=== PATIENT | female | born 1990 | race Caucasian/White ===

== ENCOUNTER 2016-12-22 08:32 | Emergency (ER) | payer OTHER ==
--- NOTE | 2016-12-22 09:52 | EDPHY ---
H & P Stated Complaint: Lightheaded episodes for several months;passed out this morning,hit head Time Seen by Provider: 12/22/16 09:36 HPI/ROS: CHIEF COMPLAINT: syncope hit head HISTORY OF PRESENT ILLNESS: 26-year-old immunocompetent female arrives via private vehicle states that this morning approximately 5:00 a.m. she woke up to go to the bathroom, she stood up from the toilet and went to get some water, felt lightheaded and felt the room darkening and had a syncopal episode, woke up on the floor. No postictal. According to her roommates, no seizure-like activity, no incontinence, no oral trauma. Impacted the occipital region of her head. No laceration. No abrasion. No hematoma. She has localized tenderness in the occiput. No midline C-spine pain. She notes prior history of similar near syncopal episode around 2015. No history of seizure disorder. No alcohol or drug use. no recent GI symptoms. She does note that she has been feeling URI symptoms for the past several weeks and is currently on a 2 week course of antibiotics prescribed by her former PCP and [place]. She is complaining of myalgias. No antecedent headache. No antecedent or concurrent abdominal pain PRIMARY CARE PROVIDER: In [place] REVIEW OF SYSTEMS: A ten point review of systems was performed and is negative with the exception of the items mentioned in the HPI PAST MEDICAL & SURGICAL HISTORY: No pertinent medical or surgical history SOCIAL HISTORY: nonsmoker. No illicit drug use. FAMILY HISTORY: no family history of premature coronary artery disease, no thromboembolic disorder history. PHYSICAL EXAM (Prior to examination, patient consented to physical exam, hands were washed and my usual and customary physical exam procedures followed) 1) GENERAL: Well-developed, well-nourished, alert and oriented. Appears to be in no acute distress. Answering questions appropriately 2) HEAD: Normocephalic, no laceration or abrasion. Tender to palpation midline occiput with no depression no hematoma. At 3) HEENT: Pupils equal, round, reactive to light bilaterally. Sclera anicteric. Nasopharynx, oropharynx, clear, no lesions. Ears bilaterally with normal tympanic membranes. No hemotympanum. No otorrhea. No rhinorrhea. No raccoon eyes. No Willard sign. 4) NECK: Full range of motion, no meningeal signs. No midline C-spine pain. Full range of motion which does not elicit midline pain or peripheral paresthesia, weakness, numbness. no meningeal sign. 5) LUNGS: Clear auscultation bilaterally, no wheezes, no rhonchi, no retractions. 6) HEART: Regular rate and rhythm, no murmur, no heave, no gallop. 7) ABDOMEN: No guarding, no rebound, no focal tenderness, negative McBurney's, negative Marquez's, negative Rovsing's, negative peritoneal sign, 8) MUSCULOSKELETAL: Moving all extremities, no focal areas of tenderness, no obvious trauma. No peripheral edema or discoloration. 9) BACK: No CVA tenderness, no midline vertebral tenderness, no fluctuance, no step-off, no obvious trauma, no visual or palpable abnormality. 10) SKIN: No rash, no petechiae. 11) Psychiatric: Patient is oriented X 3, there is no agitation. 12) NEURO: Awake, alert, and oriented to person, place and time. Answers questions appropriately. There were no obvious focal neurologic abnormalities. No cerebellar dysfunction. Cranial nerves 2 through to 12 intact. Normal steady gait. Upper and lower extremities bilaterally with strength 5 / 5, reflexes 2+. DIFFERENTIAL DIAGNOSIS: Not necessarily in any particular order, my differential diagnosis includes, but is not limited to, concussion, skull fracture, seizure, cardiac arrhythmia, ectopic , intraparenchymal contusion, subarachnoid, subdural and epidural hematoma. The patient understands that this diagnosis is provisional and can never be 100% accurate. - Personal History LMP (Females 10-55): Extended Cycle BCP/Inj Current Tetanus Diphtheria and Acellular Pertussis (TDAP): Yes - Social History Smoking Status: Never smoked Constitutional: Initial Vital Signs Temperature (C) 36.6 C 12/22/16 08:34 Heart Rate 94 12/22/16 08:34 Respiratory Rate 18 12/22/16 08:34 Blood Pressure 119/72 12/22/16 08:34 O2 Sat (%) 99 12/22/16 08:34 O2 Delivery Mode Room Air Allergies/Adverse Reactions: No Known Allergies Allergy (Unverified 12/22/16 08:38) Home Medications: Medication Instructions Recorded Bc Implant 12/22/16 Doxycycline Hyclate [Vibramycin 100 mg PO 12/22/16 100 MG (*)] Medical Decision Making - Diagnostics Imaging: Chest, PA and Lateral History: Chest pain Comparison: None Findings: There is mild bronchial wall thickening. Lung volumes are mildly prominent. Lungs are clear, without focal infiltrate or consolidation. Heart size and pulmonary vascularity are normal. There is no adenopathy or mass lesion. There is no pleural effusion , pneumomediastinum or pneumothorax. There is a mild thoracic scoliosis.. Impression: Suspect airways disease. Otherwise negative. Dictated By: Momo Haq MD CT Scan of the Head (Without Contrast) Clinical History: 26-year-old female presenting to the ED after fainting this morning hitting the posterior portion of the head with subsequent occipital pain. Rule out acute intracranial abnormality. Technique: Axial unenhanced images were obtained from the vertex through the skull base, reformatted at 5.00 and 1.50 mm increments, and reviewed in bone, brain, and subdural windows. Images were reprocessed in parasagittal and paracoronal planes. Dose reduction techniques were utilized. The DFOV is 25.0 cm. Comparison Study: None. Findings: The ventricles and basilar cisterns are normal in size, and symmetrical in configuration. There is no midline shift, or other evidence of mass effect. There is no abnormal intra or extra-axial blood collection, or acute infarction identified. The mastoids are patent. The frontal sinuses are patent. There is chronic mucosal thickening involving the maxillary sinuses ( right greater than left) with a small air-fluid level seen bilaterally, suggesting potential acute- on-chronic features. Clinical correlation is suggested. There is also a mucous retention cyst and some mucosal thickening in the posterior margins of the right and left aspects of the sphenoid sinus , and mild mucosal thickening of the caudal ethmoids. The ostiomeatal complexes are patent bilaterally. The craniocervical junction, sella turcica, pineal gland, and the orbits are within normal limits. There is no acute calvarial fracture, or osteolytic or blastic lesion. The visualized aspects of the anterior and posterior rings of C1 are intact. Impression: 1. There is no acute intracranial abnormality identified on this unenhanced CT evaluation. 2. Paranasal sinus disease involving the maxillary, ethmoid, and sphenoid sinuses, as above- detailed. If there is further clinical concern regarding the patient's symptoms, MR imaging is suggested, if not otherwise contraindicated. Findings were discussed with Essence Courtney PA-C, at 13:09, on 12/22/2016. Dictated By: Xavier Willams MD Images reviewed by myself ED Course/Re-evaluation: IV hydration given for volume depletion. Re-evaluation at 12:15 p.m.: Discussed her laboratory [place] [id number] the specific etiology of which is not completely clear. spoke with the patient further at this time, she is currently on day 09/2014 day total of doxycycline prescribed by her PCP for bronchitis. She notes 1 month of feeling ill, myalgia , URI symptoms. Will obtain influenza testing, Monospot, chest x-ray. We discussed imaging of the head, recommended imaging of the head which she is agreeable with after discussing the indications risks benefits. Discussed case with Dr. Momo Shoemaker. 1:38 p.m.: Re-evaluation. Discussed her diagnostic results. She is answering questions appropriately. Doubt meningitis. Doubt encephalitis. I think the patient can be discharged With usual and customary discharge precautions and instructions. Patient feels comfortable with this plan. - Data Points Laboratory Results: Laboratory Results 12/22/16 10:13 12/22/16 10:13 12/22/16 12/22/16 12/22/16 12:34 12:29 10:13 WBC RBC Hgb Hct MCV MCH MCHC RDW Plt Count MPV Neut % (Auto) Lymph % (Auto) [place] % (Auto) Eos % (Auto) Baso % (Auto) Nucleat RBC Rel Count Absolute Neuts (auto) Absolute Lymphs (auto) Absolute Monos (auto) Absolute Eos (auto) Absolute Basos (auto) Absolute Nucleated RBC Immature Gran % Immature Gran # Sodium Potassium Chloride Carbon Dioxide Anion Gap BUN Creatinine Estimated GFR Glucose Calcium Creatine Kinase Beta HCG, Qual NEGATIVE Urine Color PALE YELLOW Urine Appearance CLEAR Urine pH 7.0 (5.0-7.5) Ur Specific [place] 1.005 (1.002-1.030) Urine Protein NEGATIVE (NEGATIVE) Urine Ketones NEGATIVE (NEGATIVE) Urine Blood 1+ H (NEGATIVE) Urine Nitrate NEGATIVE (NEGATIVE) Urine Bilirubin NEGATIVE (NEGATIVE) Urine Urobilinogen NEGATIVE EU EU (0.2-1.0) Ur Leukocyte Esterase NEGATIVE (NEGATIVE) Urine RBC 1-3 /hpf /hpf (0-3) Urine WBC NONE SEEN /hpf /hpf (0-3) Ur Epithelial Cells TRACE /lpf /lpf (NONE-1+) Urine Bacteria TRACE /hpf H /hpf (NONE SEEN) Urine Mucus TRACE /lpf /lpf (NONE-1+) Urine Glucose NEGATIVE (NEGATIVE) Monoscreen Influenza Typ A,B (DFA) NEGATIVE FOR FLU (NEGATIVE) 12/22/16 12/22/16 12/22/16 10:13 10:13 10:00 WBC 21.72 10^3/uL H 10^3/uL (3.80-9.50) RBC 4.90 10^6/uL 10^6/uL (4.18-5.33) Hgb 14.3 g/dL g/dL (12.6-16.3) Hct 42.5 % % (38.0-47.0) MCV 86.7 fL fL (81.5-99.8) MCH 29.2 pg pg (27.9-34.1) MCHC 33.6 g/dL g/dL (32.4-36.7) RDW 13.2 % % (11.5-15.2) Plt Count 202 10^3/uL 10^3/uL (150-400) MPV 12.7 fL H fL (8.7-11.7) Neut % (Auto) 94.3 % H % (39.3-74.2) Lymph % (Auto) 2.1 % L % (15.0-45.0) [place] % (Auto) 2.6 % L % (4.5-13.0) Eos % (Auto) 0.0 % L % (0.6-7.6) Baso % (Auto) 0.3 % % (0.3-1.7) Nucleat RBC Rel Count 0.0 % % (0.0-0.2) Absolute Neuts (auto) 20.47 10^3/uL H 10^3/uL (1.70-6.50) Absolute Lymphs (auto) 0.45 10^3/uL L 10^3/uL (1.00-3.00) Absolute Monos (auto) 0.57 10^3/uL 10^3/uL (0.30-0.80) Absolute Eos (auto) 0.01 10^3/uL L 10^3/uL (0.03-0.40) Absolute Basos (auto) 0.07 10^3/uL 10^3/uL (0.02-0.10) Absolute Nucleated RBC 0.00 10^3/uL 10^3/uL (0-0.01) Immature Gran % 0.7 % % (0.0-1.1) Immature Gran # 0.15 10^3/uL H 10^3/uL (0.00-0.10) Sodium 140 mEq/L mEq/L (134-144) Potassium 4.1 mEq/L mEq/L (3.5-5.2) Chloride 107 mEq/L mEq/L (97-110) Carbon Dioxide 24 mEq/l mEq/l (22-31) Anion Gap 9 mEq/L mEq/L (8-16) BUN 9 mg/dL mg/dL (7-23) Creatinine 0.7 mg/dL mg/dL (0.6-1.0) Estimated GFR > 60 Glucose 92 mg/dL mg/dL (70-100) Calcium 10.0 mg/dL mg/dL (8.5-10.4) Creatine Kinase 34 IU/L IU/L (0-156) Beta HCG, Qual Urine Color Urine Appearance Urine pH Ur Specific [place] Urine Protein Urine Ketones Urine Blood Urine Nitrate Urine Bilirubin Urine Urobilinogen Ur Leukocyte Esterase Urine RBC Urine WBC Ur Epithelial Cells Urine Bacteria Urine Mucus Urine Glucose Monoscreen NEGATIVE (NEGATIVE) Influenza Typ A,B (DFA) Departure - Departure Disposition: Home, Routine, Self-Care Clinical Impression: Syncope Qualifiers: Syncope type: vasovagal syncope Qualified Code(s): R55 - Syncope and collapse Head injury Qualifiers: Encounter type: initial encounter Qualified Code(s): S09.90XA - Unspecified injury of head, initial encounter Condition: Good Instructions: Syncope (ED), Head Injury (ED) Additional Instructions: Return to the ER if you developed chest pain, fever, nausea, vomiting, neck stiffness, or any other symptoms that concern you. Referrals: Ping Scanlon MD [Medical Doctor] - 1-2 days without fail Christa Lara MD [Medical Doctor] - 3-4 days, if not improved
--- NOTE | 2016-12-22 10:02 | CPEKG ---
Heart Rate: 75 RR Interval: 800 P-R Interval: 144 QRSD Interval: 66 QT Interval: 356 QTC Interval: 398 P [place]: 71 QRS [place]: 79 T Wave [place]: -22 EKG Severity - ABNORMAL ECG - EKG Impression: SINUS RHYTHM EKG Impression: NONSPECIFIC T ABNORMALITIES, ANTERIOR LEADS Electronically Signed By: Momo Shoemaker 22-Dec-2016 14:46:20
[2016-12-22 10:22] LABS: % IMMATURE GRANULYOCYTES 0.7 % (0.0-1.1); ABSOLUTE IMMATURE GRANULOCYTES 0.15 10^3/uL (0.00-0.10); ADD DIFF? NO; ADD MORPH? NO; ADD SCAN? NO; ATYPICAL LYMPHOCYTE FLAG 0 (0-99); FRAGMENT RBC FLAG 0 (0-99); HEMATOCRIT 42.5 % (38.0-47.0); HEMOGLOBIN 14.3 g/dL (12.6-16.3); LEFT SHIFT FLG 0 (0-99); LIPEMIA HEMOLYSIS FLAG 80 (0-99); MEAN CELL HEMOGLOBIN 29.2 pg (27.9-34.1); MEAN CELL HEMOGLOBIN CONCENTR. 33.6 g/dL (32.4-36.7); MEAN CELL VOLUME 86.7 fL (81.5-99.8); MEAN PLATELET VOLUME 12.7 fL (8.7-11.7); PLATELET CLUMPS FLAG 0 (0-99); PLATELET COUNT 202 10^3/uL (150-400); RED CELL DISTRIBUTION WIDTH 13.2 % (11.5-15.2)
[2016-12-22 10:52] LABS: ANION GAP 9 mEq/L (8-16); CARBON DIOXIDE 24 mEq/l (22-31); CHLORIDE 107 mEq/L (97-110); CREATININE 0.7 mg/dL (0.6-1.0); GLOMERULAR FILTRATION RATE > 60; GLUCOSE 92 mg/dL (70-100); POTASSIUM 4.1 mEq/L (3.5-5.2); SODIUM 140 mEq/L (134-144)
[2016-12-22 12:42] LABS: COLOR PALE YELLOW; LEUKOCYTE ESTERASE,URINE NEGATIVE (NEGATIVE); NITRITE,URINE NEGATIVE (NEGATIVE)
[2016-12-22 13:08] LABS: BACTERIA TRACE /hpf (NONE SEEN); MUCUS TRACE /lpf (NONE-1+)
[2016-12-22 13:10] LABS: WBC,URINE NONE SEEN /hpf (0-3)
[2016-12-22 14:14] VITALS: BP 123/73; PULSE 98; RESP 16; TEMP 98.1; O2SAT 96
== END 2016-12-22 14:14 | disposition home or self-care (01) ==
DX: S09.90XA Unspecified injury of head, initial encounter (principal); R55 Syncope and collapse; W22.8XXA Striking against or struck by other objects, initial encounter; Y92.89 Other specified places as the place of occurrence of the external cause; Y93.89 Activity, other specified